=== PATIENT | male | born 1965 | race Caucasian/White ===

== ENCOUNTER 2023-05-19 06:16 | Day surgery (SDC) | payer OTHER, SELFPAY ==
[2023-05-14 08:06] VITALS: BMI 28.3
[2023-05-14 08:59] LABS: Hematocrit 43.1 % (39.0-52.0); Hemoglobin 14.5 g/dL (13.0-18.0); Mean Corp Hgb Conc. 33.6 g/dL (33.0-37.0); Mean Corpuscular Hgb 30.7 pg (27.0-31.0); Mean Corpuscular Volume 91.3 fL (80.0-94.0); Platelet Count 252 10^3/uL (130-400); Red Blood Cell Count 4.72 10^6/uL (4.70-6.10); Red Cell Dist. Width 12.5 % (11.5-14.5); White Blood Cell Count 9.8 10^3/uL (4.8-10.8)
[2023-05-14 09:12] LABS: Blood Urea Nitrogen 21 mg/dl (9-20); Calcium 9.8 mg/dl (8.4-10.2); Carbon Dioxide 21 mmol/L (22-30); Chloride 103 mmol/L (98-107); Estimated Creatinine Clearance 69 ml/min; Glucose 153 mg/dl (70-99); Potassium 4.2 mmol/L (3.5-5.1); Sodium 138 mmol/L (135-145); eGFR > 60.00
[2023-05-15 08:44] LABS: Glycohemoglobin (HgbA1c) 9.5 % (4.0-5.6)
--- NOTE | 2023-05-17 16:26 | PTCARENOTE ---
Addendum entered by Tita Stallworth RN 05/17/23 16:27:
Patients 05/14 A1C 12/08- Annalee @ Dr. Vaughan office notified
Original Note:
patients 05/14 EKG abnormal reviewed by Dr. Guadalupe- No additional interventions required
[2023-05-19] VITALS (10 sets, daily range): BP systolic 128–160; BP diastolic 75–87; BMI 28.3
[2023-05-19] MEDS: TYLENOL 1000 MG PO (09:05)
[2023-05-19] MEDS: CELEBREX 200 MG PO (09:05)
[2023-05-19] MEDS: NORMOSOL-R 1000 IV (09:08)
[2023-05-19 09:10] LABS: Glucose - Point of Care 155 mg/dl (70-99)
[2023-05-19 11:43] LABS: Glucose - Point of Care 82 mg/dl (70-99)
== END 2023-05-19 13:30 | disposition home or self-care (01) ==
LOC: SDS 06:16
PROVIDERS: ATTENDING PHYSICIAN Student in an Organized Health Care Education/Training Program; FAMILY PHYSICIAN Family Medicine
DX: S82.841A Displaced bimalleolar fracture of right lower leg, initial encounter for closed fracture (principal); X50.1XXA Overexertion from prolonged static or awkward postures, initial encounter
CPT/HCPCS: 27814; 36415; 73610; 76000; 80048; 82962; 83036; 85027; 93005; C1713